=== PATIENT | female | born 1975 | race African-American/Black ===

== ENCOUNTER 2017-03-18 19:01 | Emergency (ER) | payer MEDICARE, OTHER ==
[~2017-03-18] VITALS: Ht 165.1 cm; Wt 95.5 kg
[~2017-03-18 19:01] MED LIST: BEN50; OLAN10VI3 PO; RISP3TAB25 PO; [UNRECOGNIZED DRUG - CODE] PO
[2017-03-18 19:18] VITALS: Ht 165.1 cm; Wt 95.5 kg
--- NOTE | 2017-03-18 20:39 | ERD ---
ER Documentation Chief Complaint Date/Time DATE: 03/18/17 TIME: 20:34 Chief Complaint pain left ankle, states woke up with pain this am HPI 41-year-old female presented emergency department for left ankle pain. Stated it started this morning that woke her up. Pain was described as sharp nonradiating. Patient is not sure if she injured herself. Denies headache, loss of consciousness, dizziness, blurry vision, changes in vision, photophobia, facial pain, ear pain, throat pain, difficulty swallowing, neck pain, shoulder pain, chest pain, cough, hemoptysis, abdominal pain, back pain, loss of appetite, nausea, vomiting, hematochezia, diarrhea, constipation, urinary symptoms, , the possibility of being , bladder and bowel incontinences, bilateral calf pain/tenderness, numbness or tingling sensation, recent travel, recent exposure to illness, recent antibiotic use in the last 3 months, fever, chills. Allergies to penicillin, Bactrim, mangoes. Past medical history of bipolar, anemia. Surgical history of left ankle surgery when she was 9 years old. Family history: Denies family history of gout/rheumatoid arthritis. Social history: Lives with her mother. Denies smoking, use of alcohol, use of illegal drugs. Not exposed to secondhand smoking. ROS All systems reviewed and are negative except as per history of present illness. Medications Home Meds Active Scripts Ibuprofen* (Motrin*) 800 Mg Tab, 800 MG PO Q6H Y for PAIN AND OR ELEVATED TEMP, #30 TAB Prov:KESHA MEHTA 03/18/17 Reported Medications Olanzapine (Zyprexa) 10 Mg Soln, PO DAILY 05/12/13 Diphenhydramine Hcl* (Benadryl*) 50 Mg Cap, 100 MG PO 05/12/13 Zeigler Carbonate (Zeigler Carbonate) 300 Mg Capsule, PO BID, 0 Refills 07/30/10 Risperidone* (Risperdal*) 3 Mg Tablet, PO BID, 0 Refills 07/30/10 Allergies Allergies: Coded Allergies: Penicillins (Verified Allergy, Mild, 03/18/17) sulfamethoxazole (Verified Allergy, Unknown, sob, 03/18/17) trimethoprim (Verified Allergy, Unknown, sob, 03/18/17) Uncoded Allergies: MANGOS (Allergy, Mild, 05/15/13) rash PMhx/Soc History of Surgery: Yes (Ankle Gall Bladder) Anesthesia Reaction: No Hx Neurological Disorder: No Hx Respiratory Disorders: No Hx Cardiac Disorders: No Hx Psychiatric Problems: Yes (Biploar) Hx Miscellaneous Medical Probl: Yes (MIGRAINE; anemia) Hx Alcohol Use: Yes Hx Substance Use: No Hx Tobacco Use: Yes Smoking Status: Never smoker Physical Exam Vitals Vital Signs Date Time Temp Pulse Resp B/P Pulse Ox O2 Delivery O2 Flow Rate FiO2 03/18/17 22:33 99.0 81 20 109/70 100 Room Air 03/18/17 19:18 99.0 94 20 110/70 100 Physical Exam CONSTITUTIONAL: Well-appearing; well-nourished; in no apparent distress. HEAD: Normocephalic; atraumatic. EYES: Conjunctiva clear, sclera non-icteric, EOM intact. PERRL Ears: Hearing intact. EACs clear, TMs non-bulging, non-inflamed, translucent & mobile, ossicles normal appearance, No obstructions, no erythema, no discharges Nose: No obstructions. No polyps. No external lesions. Mucosa non-inflamed. No external lesions, septum and turbinates normal. No rhinorrhea. No discharges. Frontal sinus is non-tender to palpation. Maxillary sinus is non-tender to palpation. MOUTH: Moist mucous membranes, no lesion, no obstructions, no vesicles, no thrush, patent airway Throat: Uvula in midline. Right tonsil is +1 with no erythema, no exudate. Left tonsil is +1 with no erythema, no exudate. Tolerating secretions well. Good gag reflex. Patent airway. Neck: Supple, without lesions, bruits, or adenopathy. No mass. Thyroid non- enlarged and non-tender to palpation. CHEST: Symmetrical chest. Respirations even and not labored. No retractions noted. CARDIOVASCULAR: Normal S1, S2. RRR. No murmurs, gallops. RESPIRATORY: Normal chest excursion with respiration; breath sounds clear and equal bilaterally; no wheezes, rhonchi, or rales. Breathing even and unlabored. Speaking in clear, full, and complete sentences w/ ease. ABDOMEN: Normal bowel sounds normal. Soft, round, non-distended, non-guarding, no tenderness, no rebound, no organomegaly, no masses, no pulsating abdominal mass. No hernia. No peritoneal signs. : No CVA tenderness. BACK: Symmetrical shoulder. Spine is midline without deformity, tenderness. No evidence of trauma or deformity. PELVIS: Stable pelvis. No evidence of trauma or deformity. MUSCULOSKELETAL: Normal gait and station. No misalignment, asymmetry, crepitation, defects, tenderness, masses, effusions, decreased range of motion, instability, atrophy or abnormal strength or tone in the head, neck, spine, ribs , pelvis or extremities except eft ankle has tenderness to palpation on medial and lateral without obvious deformity/discoloration. No swelling. Pedal pulse is within normal limits. No neurovascular deficits. Left knee is unremarkable. Bilateral hips are unremarkable. Right lower extremities unremarkable. Good and full range of motion of neck and spine. Able to move bilateral upper extremity. No calf tenderness bilaterally. NEUROVASCULAR: Distal pulses are present. Pedal pulse are present, equal, and normal. Capillary refills are < 2 seconds. NEUROLOGIC: Alert and oriented x4. Speaks full and clear sentences. Cranial Nerves II-XII normal. Sensation to pain, touch, and proprioception normal. Grossly unremarkable. No neurologic deficits. Romberg test is negative. PSYCHOLOGICAL: The patients mood and manner are appropriate. No hallucinations , delusions. Not SI. Not HI. Has the capacity to decide for self SKIN: Normal for age and ethnicity; warm; dry; good turgor; no apparent lesions or exudates. No rashes, hives, discoloration. Intact. Procedures/MDM Examination: Please see physical examination. Disease process, medical treatment was explained to the patient and family member. They verbalized understanding and agreed with the diagnostic tests, medical treatment, and follow-up care. Radiology: X-ray of the left ankle Impression: No acute fracture or dislocation. Mild to moderate ankle soft tissue swelling to Treatment: Ede wrap to left ankle. Re-evaluation: Denies headache, dizziness, blurry vision, neck pain, shoulder pain, chest pain, abdominal pain, back pain, nausea, vomiting. No episode of emesis here in the emergency department. Respirations even and unlabored. Lung sounds are clear to auscultation. No neurovascular deficits prior to and after the application of Ede wrap. No calf tenderness bilaterally. No neurological deficits. Consultation: None. Differential diagnosis: Fracture versus dislocation versus contusion versus sprain Medical decision makin-year-old female presented emergency department for left ankle pain. Stated it started this morning that woke her up. Pain was described as sharp nonradiating. Patient is not sure if she injured herself on that. Patient's complaint, patient's history about her complaint, mother's history about the patient's complaint, my physical findings, diagnostic test results, my reevaluation are consistent with final diagnosis of left ankle sprain/soft tissue swelling. Physical exam: Right lower extremity is unremarkable. Left ankle has tenderness to palpation on medial and lateral without obvious deformity/ discoloration. No swelling. Pedal pulse is within normal limits. No neurovascular deficits. Left knee is unremarkable. Bilateral hips are unremarkable. Good and full range of motion of neck and spine. Able to move bilateral upper extremity. X-ray of the left ankle Medications prescribed are the following: Motrin. Patient and family member are made aware of the side effects and adverse reactions of the medications prescribed. Instructed on when to seek emergent and medical attention in case allergic/anaphylactic reactions or severe side effects and or adverse reactions to medications. Patient and family member verbalized understanding. Patient instructed Instructed to follow-up with his PCP in 24-48 hours. Instructed to Call 911 for chest pain, shortness of breath. Advised to come back here in ED as soon as possible for severity of symptoms which includes but not limited to: any new symptoms; shortness of breath/difficulty of breathing; cardiovascular changes; severe gastrointestinal symptoms; signs and symptoms of bleeding and or infection; signs of compartment syndrome/neurovascular changes; neurological changes/deficits. Patient and family member verbalized understanding. Upon discharge, patient is alert and oriented x 4, speaks full and clear sentences, denies pain, has no neurological deficits, has no neurovascular deficits, difficulty of breathing. Breathing even and unlabored. Lung sounds are clear to auscultation. Not in distress. Appears comfortable. Ambulatory with steady gait. Appears satisfied with care provided here in ED. Departure Diagnosis: Primary Impression: Ankle injury Condition: Stable Additional Instructions: Patient instructed Instructed to follow-up with his PCP in 24-48 hours. Instructed to Call 911 for chest pain, shortness of breath. Advised to come back here in ED as soon as possible for severity of symptoms which includes but not limited to: any new symptoms; shortness of breath/difficulty of breathing; cardiovascular changes; severe gastrointestinal symptoms; signs and symptoms of bleeding and or infection; signs of compartment syndrome/neurovascular changes; neurological changes/deficits. Patient and family member verbalized understanding. KESHA MEHTA March 18, 2017 20:39
--- NOTE | 2017-03-18 21:40 | RADRPT ---
PROCEDURE: XR Ankle. CLINICAL INDICATION: Left ankle pain. TECHNIQUE: Three views of the left ankle were performed. COMPARISON: None. FINDINGS: No acute fracture or dislocation is seen. The ankle mortise is symmetric. No radiopaque foreign body is identified. Mild to moderate ankle soft tissue swelling is noted, left lateral greater than medi al. IMPRESSION: 1. No acute fracture or dislocation. 2. Mild to moderate ankle soft tissue swelling. RPTAT: HFN .Tu Umaña MD, Date Time Electronically viewed and signed by .Tu Umaña MD, on 03/18/2017 21:39 .N/
[2017-03-18] MEDS ORDERED: IBUP800T25 PO (22:01)
[2017-03-18 22:33] VITALS: BP 109/70; PULSE 81; RESP 20; TEMP 99
== END 2017-03-18 22:34 | disposition home or self-care (01) ==
LOC: FTE 19:01
DX: S99.912A Unspecified injury of left ankle, initial encounter (principal); X58.XXXA Exposure to other specified factors, initial encounter; Y92.9 Unspecified place or not applicable; Z87.891 Personal history of nicotine dependence
CPT/HCPCS: 73610

== ENCOUNTER 2018-10-26 09:51 | Emergency (ER) | END 2018-10-26 11:15 | disposition home or self-care (01) ==